=== PATIENT | female | born 1965 | race Caucasian/White ===

== ENCOUNTER 2023-05-07 04:30 | Day surgery (SDC) | payer OTHER ==
[2023-05-05 11:23] VITALS: BMI 25.4
[~2023-05-07 04:30] MED LIST: ACETAMINOPHEN 325 MG TABLET (FP) PO PRN; OFLOXACIN 0.3% OPHTHALMIC SOLUTION 5 ML BOTTLE OP SCH
[2023-05-07] MEDS ORDERED: TRIAMCINOLONE ACET 40MG/1ML VIAL ONE (07:33)
[2023-05-07] MEDS ORDERED: TETRACAINE 0.5% OPHTH SOLN 2 ML BOTTLE ONE (07:34)
[2023-05-07] MEDS ORDERED: POVIDONE-IODINE 5% OPHTHALMIC PREP 30 ML SOLUTION ONE (07:34)
[2023-05-07] MEDS ORDERED: LIDOCAINE 1%/EPI 1:100000 (20 ML MULTI DOSE VIAL) ONE (07:41)
[2023-05-07] MEDS ORDERED: OFLOXACIN 0.3% OPHTHALMIC SOLUTION 5 ML BOTTLE ONE (10:31)
[2023-05-07] MEDS: OFLOXACIN 0.3% OPHTHALMIC SOLUTION 5 ML BOTTLE OS ONE ×3 (10:51→11:01)
[2023-05-07 10:57] VITALS: PULSE 59
[2023-05-07] MEDS ORDERED: MIDAZOLAM HCL 2 MG/2 ML SINGLE DOSE VIAL ONE (12:19)
[2023-05-07] MEDS: TETRACAINE 0.5% OPHTH SOLN 2 ML BOTTLE OS ONE (12:21)
[2023-05-07] MEDS: POVIDONE-IODINE 5% OPHTHALMIC PREP 30 ML SOLUTION OS ONE (12:23)
[2023-05-07] MEDS: BSS (NA/CA/MG/K) BALANCED SALT SOLUTION OPHTH SOLN 15 ML BOTTLE OS ONE (12:29)
[2023-05-07] MEDS: LIDOCAINE 1%/EPI 1:100000 (20 ML MULTI DOSE VIAL) IJ ONE ×3 (12:30)
[2023-05-07] MEDS: TRIAMCINOLONE ACETONIDE 40 MG/ML 10 ML VIAL NR ONE ×3 (12:59)
[2023-05-07 13:34] VITALS: RESP 18
[2023-05-07 14:08] VITALS: BP 130/86; TEMP 97.6
== END 2023-05-07 14:10 | disposition home or self-care (01) ==
LOC: JASU-SURG 04:30
PROVIDERS: ATTEND Ophthalmology
PROC: 08U107Z Supplement of Left Eye with Autologous Tissue Substitute, Open Approach (ICD-10-PCS; principal; 2023-05-07 12:00)
DX: H11.002 Unspecified pterygium of left eye (principal)
CPT/HCPCS: 88304-TC

== ENCOUNTER 2024-04-26 17:27 | Inpatient (IN) | payer OTHER ==
[2024-04-26 17:48] VITALS: BMI 28.5
[2024-04-26] MEDS ORDERED: MAG HYDROX/AL HYDROX/SIMETH 30 ML UNIT-DOSE CUP ONE (19:31)
[2024-04-26] MEDS ORDERED: ONDANSETRON 4 MG/2 ML VIAL ONE (19:31)
[2024-04-26] MEDS ORDERED: FAMOTIDINE 20 MG TABLET ONE (19:31)
[2024-04-26 19:33] LABS: BASO % 0.5 % (0-2.0); EOS % 0.5 % (0-4.5); HEMATOCRIT 41.3 % (32.4-45.2); HEMOGLOBIN 13.8 GM/dL (10.7-15.3); LYMPH % 9.4 % (8-40); MCH 28.6 pg (25.7-33.7); MCHC 33.4 g/dl (32.0-36.0); MEAN CELL VOLUME 85.5 fl (80-96); MEAN PLT VOLUME 8.7 fl (7.5-11.1); MONO % 3.5 % (3.8-10.2); NEUT % 86.1 % (42.8-82.8); PLATELET COUNT 247 10^3/uL (134-434); RBC 4.83 M/mm3 (3.60-5.2); RDW 13.2 % (11.6-15.6); WHITE BLOOD COUNT 9.7 K/mm3 (4.0-10.0)
[2024-04-26] MEDS ORDERED: ACETAMINOPHEN 500 MG TABLET (FP) ONE (19:36)
[2024-04-26] MEDS: MAG HYDROX/AL HYDROX/SIMETH 30 ML UNIT-DOSE CUP PO ONE (19:41)
[2024-04-26] MEDS: FAMOTIDINE 20 MG TABLET PO ONE (19:41)
[2024-04-26] MEDS: ONDANSETRON 4 MG/2 ML VIAL IVPUSH ONE (19:41)
[2024-04-26] MEDS: ACETAMINOPHEN 500 MG TABLET (FP) PO ONE (19:41)
[2024-04-26 19:54] LABS: POTASSIUM 3.5 mmol/L (3.5-5.1)
[2024-04-26 19:55] LABS: CALCIUM 9.8 mg/dL (8.5-10.1)
[2024-04-26 19:56] LABS: BLOOD UREA NITROGEN 9.2 mg/dL (7-18)
[2024-04-26 19:59] LABS: CREATININE 0.6 mg/dL (0.55-1.3)
[2024-04-26 20:01] LABS: BILIRUBIN,TOTAL 1.3 mg/dL (0.2-1)
[2024-04-26 20:38] LABS: PH,URINE 8.5 (5.0-8.0); URINE APPEARANCE TURBID; URINE BILIRUBIN NEGATIVE (NEGATIVE); URINE COLOR YELLOW; URINE GLUCOSE (UA) NEGATIVE (NEGATIVE); URINE KETONE NEGATIVE (NEGATIVE); URINE LEUK ESTERASE NEGATIVE (NEGATIVE); URINE NITRITE NEGATIVE (NEGATIVE); URINE PROTEIN NEGATIVE (NEGATIVE)
[2024-04-26 21:10] LABS: HIV INTERPRETATION NEGATIVE (NEGATIVE)
[2024-04-26] MEDS ORDERED: CEFTRIAXONE 2,000 MG in DEXTROSE 5%-WATER - 50 ML IVPB ONE (22:11)
[2024-04-26] MEDS ORDERED: cefTRIAXone SODIUM 1 GM VIAL ONE (23:45)
[2024-04-26] MEDS ORDERED: CEFTRIAXONE 1 GM/50 ML IVPB ONE (23:46)
[2024-04-27] MEDS: SODIUM CHLORIDE 0.9% 500 ML INFUS.BAG IV ONE (00:06)
[2024-04-27] MEDS: CEFTRIAXONE 2 GM-D5W BAG 2 GM/50 ML BAG IVPB ONE (00:06)
[2024-04-27 03:06] LABS: INR 0.97 (0.83-1.09)
[2024-04-27 12:39] LABS: HEMATOCRIT 39.2 % (32.4-45.2); HEMOGLOBIN 12.7 GM/dL (10.7-15.3); MCH 28.4 pg (25.7-33.7); MCHC 32.5 g/dl (32.0-36.0); MEAN CELL VOLUME 87.4 fl (80-96); MEAN PLT VOLUME 8.8 fl (7.5-11.1); PLATELET COUNT 226 10^3/uL (134-434); RBC 4.48 M/mm3 (3.60-5.2); RDW 12.9 % (11.6-15.6); WHITE BLOOD COUNT 4.9 K/mm3 (4.0-10.0)
[2024-04-27 12:47] LABS: INR 0.99 (0.83-1.09); PROTHROMBIN TIME (PATIENT) 10.9 SEC (9.7-13.0)
[2024-04-27] MEDS ORDERED: HEPARIN NA (PORCINE) 5,000 UNITS/ML 1ML VIAL ONE (13:04)
[2024-04-27] MEDS ORDERED: cefOXitin SODIUM 2 GM VIAL (RESTRICTED TO ID) IVPB ONE (13:04)
[2024-04-27] MEDS ORDERED: BUPIVACAINE HCL/PF 0.25% (2.5MG/ML) 10 ML VIAL ONE (13:04)
[2024-04-27 13:08] LABS: POTASSIUM 3.9 mmol/L (3.5-5.1)
[2024-04-27 13:10] LABS: CALCIUM 9.4 mg/dL (8.5-10.1); MAGNESIUM 2.6 mg/dL (1.8-2.4)
[2024-04-27 13:11] LABS: ALBUMIN 3.4 g/dl (3.4-5.0); BLOOD UREA NITROGEN 7.8 mg/dL (7-18)
[2024-04-27 13:13] LABS: PHOSPHOROUS 3.6 mg/dL (2.5-4.9)
[2024-04-27 13:14] LABS: BILIRUBIN,DIRECT 0.2 mg/dL (0.0-0.2); CREATININE 0.5 mg/dL (0.55-1.3)
[2024-04-27 13:15] LABS: BILIRUBIN,TOTAL 0.6 mg/dL (0.2-1)
[2024-04-27 13:16] LABS: TOT PROT 6.7 g/dl (6.4-8.2)
[2024-04-27] MEDS ORDERED: ROCURONIUM BROMIDE 50 MG/5 ML SYRINGE ONE (14:36)
[2024-04-27] MEDS ORDERED: MIDAZOLAM HCL 2 MG/2 ML SINGLE DOSE VIAL ONE (14:36)
[2024-04-27] MEDS: cefOXitin SODIUM 2 GM VIAL (RESTRICTED TO ID) IVPB ONE (14:49)
[2024-04-27] MEDS: BUPIVACAINE HCL/PF 0.25% (2.5MG/ML) 10 ML VIAL IJ ONE (15:00)
[2024-04-27] MEDS ORDERED: LABETALOL HCL 20 MG/4 ML VIAL ONE (15:08)
[2024-04-27] MEDS ORDERED: NEOSTIGMINE METHYLSULFATE 0.5 MG/1 ML - 10 ML MDV ONE (15:23)
[2024-04-27] MEDS ORDERED: LACTATED RINGERS SOLUTION 1,000 ML IV SCH (16:00)
[2024-04-27] MEDS ORDERED: oxyCODONE HCL 5 MG TABLET PO PRN (16:32)
[2024-04-27] MEDS: LACTATED RINGERS SOLUTION 1,000 ML/1,000 ML INFUS.BAG IV SCH (17:41)
[2024-04-27] MEDS: oxyCODONE HCL 5 MG TABLET PO PRN (20:43)
[2024-04-27] MEDS: ACETAMINOPHEN 1000 MG/100 ML BAG IVPB SCH (22:58)
[2024-04-28 08:34] LABS: BASO % 0.3 % (0-2.0); EOS % 0.2 % (0-4.5); HEMATOCRIT 35.2 % (32.4-45.2); HEMOGLOBIN 11.4 GM/dL (10.7-15.3); LYMPH % 17.7 % (8-40); MCH 28.3 pg (25.7-33.7); MCHC 32.4 g/dl (32.0-36.0); MEAN CELL VOLUME 87.2 fl (80-96); MEAN PLT VOLUME 8.7 fl (7.5-11.1); MONO % 5.9 % (3.8-10.2); NEUT % 75.9 % (42.8-82.8); PLATELET COUNT 224 10^3/uL (134-434); RBC 4.04 M/mm3 (3.60-5.2); RDW 13.5 % (11.6-15.6)
[2024-04-28 09:02] LABS: CALCIUM 9.1 mg/dL (8.5-10.1)
[2024-04-28 09:03] LABS: ALBUMIN 3.1 g/dl (3.4-5.0)
[2024-04-28 09:06] LABS: CREATININE 0.5 mg/dL (0.55-1.3)
[2024-04-28 09:07] LABS: BILIRUBIN,TOTAL 0.5 mg/dL (0.2-1)
[2024-04-28 09:08] LABS: TOT PROT 6.2 g/dl (6.4-8.2)
[2024-04-28] MEDS: ACETAMINOPHEN 500 MG TABLET (FP) PO PRN (13:24)
[2024-04-28 14:55] VITALS: BP 126/67; PULSE 78; RESP 22; TEMP 97.8
[2024-04-29] MEDS ORDERED: DOCUSATE SODIUM 100 MG CAPSULE (FP) PO SCH (10:00)
== END 2024-04-28 14:01 | disposition home or self-care (01) | DRG 263 ==
LOC: JER 17:27 → JERBED 23:41 → J6W 04-27 03:59 → OBSVTOIN 04-27 14:01
PROVIDERS: ADMIT Internal Medicine; ATTEND Internal Medicine
PROC: 0FT44ZZ Resection of Gallbladder, Percutaneous Endoscopic Approach (ICD-10-PCS; principal; 2024-04-27 13:00)
DX: K80.00 Calculus of gallbladder with acute cholecystitis without obstruction (principal); I10 Essential (primary) hypertension; E80.6 Other disorders of bilirubin metabolism; R10.13 Epigastric pain; R74.01 Elevation of levels of liver transaminase levels
CPT/HCPCS: 36415; 74181-TC; 76705-TC; 80053; 80061; 81003; 82248; 83690; 83735; 84100; 84484; 85025; 85027; 85610; 86708; 86709; 86803; 86850; 86900; 86901; 87086; 87340; 87389; 87517; 88304-TC; 93005; 93010; 94760; 99285-25; G0378; J0131; J1644